=== PATIENT | male | born 1945 | race Caucasian/White ===

== ENCOUNTER 2019-01-31 11:08 | Inpatient (IN) ==
[~2019-01-31 11:08] MED LIST: ASPIRIN 325 MG TABLET PO ONE; DIAZEPAM 5 MG TABLET PO ONE; MAGNESIUM SULF RIDER 2 GM in PREMIX 1 EACH IV PRN; diphenhydrAMINE CAP 25 MG CAPSULE PO ONE
[2019-01-31] MEDS: SODIUM CHLORIDE 0.9% 1,000 ML IV SCH ×2 (11:50→21:34)
[2019-01-31] MEDS ORDERED: diphenhydrAMINE CAP 25 MG CAPSULE ONE (13:08)
[2019-01-31] MEDS ORDERED: DIAZEPAM 5 MG TABLET ONE (13:08)
[2019-01-31] MEDS ORDERED: HEPARIN/NACL 0.9% 2 UNITS/ML 1,000 ML IV ONE (13:11)
[2019-01-31] MEDS ORDERED: LIDOCAINE 1% 20 ML VIAL ONE (13:11)
[2019-01-31] MEDS ORDERED: fentaNYL 100 MCG/2 ML VIAL ONE ×2 (13:45→14:51)
[2019-01-31] MEDS ORDERED: MIDAZOLAM 2 MG/2 ML VIAL ONE ×3 (13:45→14:51)
[2019-01-31] MEDS ORDERED: BIVALIRUDIN 250 MG VIAL IV ONE (14:17)
[2019-01-31] MEDS ORDERED: NITROGLYCERIN SL 0.4 MG TABLET SL PRN (15:47)
[2019-01-31] MEDS ORDERED: ACETAMINOPHEN/CODEINE 300-30 MG TABLET PO PRN (15:48)
[2019-01-31] MEDS ORDERED: ZALEPLON 5 MG CAPSULE PO PRN (15:48)
[2019-01-31] MEDS ORDERED: MORPHINE 4 MG/1 ML VIAL IV PRN (15:48)
[2019-01-31] MEDS ORDERED: ONDANSETRON 4 MG/2 ML VIAL IV PRN (15:48)
[2019-01-31] MEDS: OXcarbazepine 300 MG TABLET PO SCH (20:34)
[2019-01-31] MEDS: ROSUVASTATIN 20 MG TABLET PO SCH (20:34)
[2019-01-31] MEDS: OMEGA 3 ACID ETHYL ESTERS 1 GM CAPSULE PO SCH (20:34)
[2019-01-31] MEDS: RANOLAZINE 500 MG TABLET PO SCH (20:34)
[2019-01-31] MEDS: AMITRIPTYLINE 25 MG TABLET PO SCH (20:34)
[2019-01-31] MEDS: PREGABALIN 75 MG CAPSULE PO SCH (20:35)
[2019-01-31] MEDS: RANITIDINE 150 MG TABLET PO SCH (22:23)
[2019-02-01 03:48] LABS: Basophils # 0.1 10*3/uL (0.0-0.2); Basophils % 0.8 % (0.0-0.8); Eosinophils # 0.4 10*3/uL (0.0-0.87); Eosinophils % 5.7 % (0.00-10.9); Hematocrit 41.7 VOL% (42.0-52.0); Hemoglobin 14.2 GM/DL (14.0-18.0); Immature Granulocytes % 0.3 %; Immature Granulocytes Absolute 0.02 #; Lymphocytes # 1.5 10*3/uL (1.4-4.0); Lymphocytes % 23.5 % (21.2-54.2); Mean Corpuscular HGB Conc 34.1 GM/DL (32-36); Mean Corpuscular Volume 97.4 FL (87-102); Mean Platelet Volume 10.2 FL (9.6-12.0); Monocytes % 11.8 % (1.7-12.7); Neutrophils % 57.9 % (38.7-73.9); Platelet Count 152 T/CUMM (130-400); Red Blood Count 4.28 MC/CUMM (3.8-5.5); White Blood Count 6.2 T/CUMM (4-12)
[2019-02-01 04:09] LABS: Calcium 8.2 MG/DL (8.5-10.1); Osmolality,Calculated 282.3 MOS/KG (273-304); Risk Ratio 3.94; VLDL CHOLESTEROL 51.6 MG/DL
[2019-02-01] MEDS: SODIUM CHLORIDE 0.9% 1,000 ML IV SCH (07:29)
[2019-02-01] MEDS: POTASSIUM CHLORIDE RIDER 10 MEQ in PREMIX 1 EACH IV PRN ×2 (08:19→10:07)
[2019-02-01] MEDS: OMEGA 3 ACID ETHYL ESTERS 1 GM CAPSULE PO SCH ×2 (08:23→21:10)
[2019-02-01] MEDS: RANOLAZINE 500 MG TABLET PO SCH ×2 (08:23→21:11)
[2019-02-01] MEDS: PREGABALIN 100 MG CAPSULE PO SCH (08:23)
[2019-02-01] MEDS: DOXAZOSIN 1 MG TABLET PO SCH (08:23)
[2019-02-01] MEDS: CHOLECALCIFEROL 1,000 UNIT TABLET PO SCH (08:23)
[2019-02-01] MEDS: hydroCHLOROthiazide 25 MG TABLET PO SCH (08:23)
[2019-02-01] MEDS: ASPIRIN EC 81 MG TABLET PO SCH (08:23)
[2019-02-01] MEDS: FERROUS SULFATE 325 MG TABLET PO SCH (08:23)
[2019-02-01] MEDS: RANITIDINE 150 MG TABLET PO SCH ×2 (08:24→21:12)
[2019-02-01] MEDS: POTASSIUM CHLORIDE 10 MEQ TABLET PO SCH (08:24)
[2019-02-01] MEDS: OXcarbazepine 300 MG TABLET PO SCH ×2 (08:24→21:23)
[2019-02-01] MEDS: ISOSORBIDE MONONITRATE 30 MG TABLET PO SCH (08:24)
[2019-02-01] MEDS: amLODIPine 10 MG TABLET PO SCH (08:24)
[2019-02-01] MEDS: ACETAMINOPHEN 500 MG TABLET PO SCH (08:30)
[2019-02-01] MEDS ORDERED: ENOXAPARIN 40 MG/0.4 ML SYRINGE SUBCUT SCH (09:00)
[2019-02-01] MEDS ORDERED: POTASSIUM CHLORIDE 20 MEQ TABLET PO ONE (09:28)
[2019-02-01] MEDS ORDERED: ENOXAPARIN 60 MG/0.6 ML SYRINGE SUBCUT ONE (09:39)
[2019-02-01] MEDS: ASCORBIC ACID 500 MG TABLET PO SCH ×2 (12:48→21:11)
[2019-02-01] MEDS: PREGABALIN 75 MG CAPSULE PO SCH (21:11)
[2019-02-01] MEDS: ROSUVASTATIN 20 MG TABLET PO SCH (21:12)
[2019-02-01] MEDS: AMITRIPTYLINE 25 MG TABLET PO SCH (21:12)
[2019-02-01] MEDS: ENOXAPARIN 100 MG/ML SYRINGE SUBCUT SCH (21:14)
[2019-02-02 06:34] LABS: Basophils # 0.1 10*3/uL (0.0-0.2); Basophils % 0.8 % (0.0-0.8); Eosinophils # 0.4 10*3/uL (0.0-0.87); Eosinophils % 6.5 % (0.00-10.9); Hematocrit 44.2 VOL% (42.0-52.0); Hemoglobin 14.7 GM/DL (14.0-18.0); Immature Granulocytes % 0.5 %; Immature Granulocytes Absolute 0.03 #; Lymphocytes # 1.8 10*3/uL (1.4-4.0); Lymphocytes % 29.7 % (21.2-54.2); Mean Corpuscular HGB Conc 33.3 GM/DL (32-36); Mean Corpuscular Volume 100.5 FL (87-102); Mean Platelet Volume 10.6 FL (9.6-12.0); Monocytes % 11.9 % (1.7-12.7); Neutrophils % 50.6 % (38.7-73.9); Platelet Count 152 T/CUMM (130-400); Red Cell Distribution Width 12.9 % (9.3-17.3)
[2019-02-02 07:04] LABS: Calcium 8.9 MG/DL (8.5-10.1); Osmolality,Calculated 278.5 MOS/KG (273-304)
[2019-02-02] MEDS: RANOLAZINE 500 MG TABLET PO SCH ×2 (08:51→20:59)
[2019-02-02] MEDS: DOXAZOSIN 1 MG TABLET PO SCH (08:51)
[2019-02-02] MEDS: ASCORBIC ACID 500 MG TABLET PO SCH ×2 (08:52→20:59)
[2019-02-02] MEDS: OMEGA 3 ACID ETHYL ESTERS 1 GM CAPSULE PO SCH ×2 (08:52→21:00)
[2019-02-02] MEDS: RANITIDINE 150 MG TABLET PO SCH ×2 (08:52→21:01)
[2019-02-02] MEDS: CHOLECALCIFEROL 1,000 UNIT TABLET PO SCH (08:52)
[2019-02-02] MEDS: PREGABALIN 100 MG CAPSULE PO SCH (08:53)
[2019-02-02] MEDS: ISOSORBIDE MONONITRATE 30 MG TABLET PO SCH (08:53)
[2019-02-02] MEDS: ASPIRIN EC 81 MG TABLET PO SCH (08:53)
[2019-02-02] MEDS: FERROUS SULFATE 325 MG TABLET PO SCH (08:53)
[2019-02-02] MEDS: amLODIPine 10 MG TABLET PO SCH (08:53)
[2019-02-02] MEDS: POTASSIUM CHLORIDE 10 MEQ TABLET PO SCH (08:53)
[2019-02-02] MEDS: hydroCHLOROthiazide 25 MG TABLET PO SCH (08:54)
[2019-02-02] MEDS: OXcarbazepine 300 MG TABLET PO SCH ×2 (08:54→21:00)
[2019-02-02] MEDS: ENOXAPARIN 100 MG/ML SYRINGE SUBCUT SCH ×2 (08:54→20:59)
[2019-02-02] MEDS: ACETAMINOPHEN 500 MG TABLET PO SCH (09:01)
[2019-02-02 17:25] LABS: Troponin I 0.245 NG/ML (0.00-0.045)
[2019-02-02] MEDS: PREGABALIN 75 MG CAPSULE PO SCH (21:00)
[2019-02-02] MEDS: AMITRIPTYLINE 25 MG TABLET PO SCH (21:00)
[2019-02-02] MEDS ORDERED: TAMSULOSIN 0.4 MG CAPSULE PO SCH (21:00)
[2019-02-02] MEDS: ROSUVASTATIN 20 MG TABLET PO SCH (21:00)
[2019-02-02 22:54] LABS: Troponin I 0.261 NG/ML (0.00-0.045)
[2019-02-03 06:24] LABS: Basophils % 0.5 % (0.0-0.8); Eosinophils # 0.3 10*3/uL (0.0-0.87); Eosinophils % 4.2 % (0.00-10.9); Hemoglobin 14.5 GM/DL (14.0-18.0); Immature Granulocytes % 0.3 %; Immature Granulocytes Absolute 0.02 #; Lymphocytes # 1.4 10*3/uL (1.4-4.0); Lymphocytes % 23.2 % (21.2-54.2); Mean Corpuscular HGB Conc 33.7 GM/DL (32-36); Mean Corpuscular Volume 98.6 FL (87-102); Mean Platelet Volume 10.8 FL (9.6-12.0); Neutrophils % 59.8 % (38.7-73.9); Platelet Count 150 T/CUMM (130-400); Red Blood Count 4.36 MC/CUMM (3.8-5.5); Red Cell Distribution Width 12.7 % (9.3-17.3)
[2019-02-03 06:49] LABS: Calcium 8.8 MG/DL (8.5-10.1)
[2019-02-03] MEDS: ENOXAPARIN 100 MG/ML SYRINGE SUBCUT SCH (08:55)
[2019-02-03] MEDS: OMEGA 3 ACID ETHYL ESTERS 1 GM CAPSULE PO SCH (08:57)
[2019-02-03] MEDS: ASCORBIC ACID 500 MG TABLET PO SCH (08:57)
[2019-02-03] MEDS: FERROUS SULFATE 325 MG TABLET PO SCH (08:57)
[2019-02-03] MEDS: DOXAZOSIN 1 MG TABLET PO SCH (08:58)
[2019-02-03] MEDS: POTASSIUM CHLORIDE 10 MEQ TABLET PO SCH (08:58)
[2019-02-03] MEDS: hydroCHLOROthiazide 25 MG TABLET PO SCH (08:58)
[2019-02-03] MEDS: amLODIPine 10 MG TABLET PO SCH (08:59)
[2019-02-03] MEDS: RANOLAZINE 500 MG TABLET PO SCH (08:59)
[2019-02-03] MEDS: ACETAMINOPHEN 500 MG TABLET PO SCH (08:59)
[2019-02-03] MEDS: CHOLECALCIFEROL 1,000 UNIT TABLET PO SCH (08:59)
[2019-02-03] MEDS: ISOSORBIDE MONONITRATE 30 MG TABLET PO SCH (08:59)
[2019-02-03] MEDS: OXcarbazepine 300 MG TABLET PO SCH (09:00)
[2019-02-03] MEDS: RANITIDINE 150 MG TABLET PO SCH (09:00)
[2019-02-03] MEDS: ASPIRIN EC 81 MG TABLET PO SCH (09:00)
[2019-02-03] MEDS: PREGABALIN 100 MG CAPSULE PO SCH (09:10)
[2019-02-03 12:21] VITALS: BP 104/61
== END 2019-02-03 12:11 | disposition hospice, home (50) | DRG 287 ==
LOC: N.CL 11:08 → N.CC 15:48 → N.TELEN 02-01 10:49
PROVIDERS: ADMIT Internal Medicine Cardiovascular Disease; ATTEND Internal Medicine Cardiovascular Disease
PROC: CLCCHCL (ICD-10-PCS; 2019-01-31 14:45)